=== PATIENT | male | born 1960 | race Caucasian/White ===

== ENCOUNTER 2017-12-07 08:25 | Day surgery (SDC) | payer OTHER ==
[~2017-12-07] VITALS: Ht 177.8 cm; Wt 100.0 kg
[2017-12-07] MEDS ORDERED: 0.9% SODIUM CHLORIDE 10 ML SYRINGE IVP PRN (08:30)
[2017-12-07] MEDS ORDERED: METOPROLOL TARTRATE 50 MG TABLET PO PRN (08:30)
[2017-12-07] MEDS ORDERED: METOPROLOL TARTRATE 50 MG TABLET ONE (08:56)
[2017-12-07 09:07] LABS: ANION GAP 5 mmol/L (8-16); CARBON DIOXIDE 31 mmol/L (22-29); CHLORIDE 104 mmol/L (98-107); CREATININE 0.89 mg/dL (0.60-1.30); GLOMERULAR FILTR. RATE CALC > 60 mL/min (>60); GLUCOSE,RANDOM 217 mg/dL (70-110); POTASSIUM 4.2 mmol/L (3.5-5.1); SODIUM SERUM 140 mmol/L (136-145); UREA NITROGEN, BLOOD 14 mg/dL (7-18)
[2017-12-07] MEDS ORDERED: METF500T6 PO (09:13)
[2017-12-07] MEDS ORDERED: SITA100 PO (09:13)
[2017-12-07] MEDS ORDERED: GLIP10 PO (09:13)
[2017-12-07] MEDS ORDERED: METO-558 PO (09:13)
[2017-12-07] MEDS ORDERED: ATOR20TA86 PO (09:13)
[2017-12-07] MEDS ORDERED: GABA-531 PO (09:13)
[2017-12-07] MEDS ORDERED: IOVERSOL 350 MG/ML 150 ML VIAL ONE ×2 (09:41→10:22)
[2017-12-07] MEDS ORDERED: SODIUM CHLORIDE 0.9% 100 ML ONE ×2 (09:41→10:22)
[2017-12-07] MEDS ORDERED: METOPROLOL TARTRATE 5 MG/5 ML VIAL ONE (10:11)
[2017-12-07] MEDS ORDERED: NITROGLYCERIN 400 MCG/SUBLINGUAL SPRAY 4.9 GM BOTTLE SL ONE ×2 (10:11→10:42)
[2017-12-07] MEDS ORDERED: METOPROLOL TARTRATE 5 MG/5 ML VIAL IVP ONE (10:37)
== END 2017-12-07 11:15 | disposition home or self-care (01) ==
LOC: SURGERY 08:25 → EDSTATUS 10:30 → SURGERY 11:15
PROVIDERS: ATTEND Internal Medicine Cardiovascular Disease
DX: I25.118 Atherosclerotic heart disease of native coronary artery with other forms of angina pectoris (principal); M47.814 Spondylosis without myelopathy or radiculopathy, thoracic region; I08.3 Combined rheumatic disorders of mitral, aortic and tricuspid valves; E11.9 Type 2 diabetes mellitus without complications; E78.5 Hyperlipidemia, unspecified; K21.9 Gastro-esophageal reflux disease without esophagitis; F12.90 Cannabis use, unspecified, uncomplicated; I11.9 Hypertensive heart disease without heart failure; F17.210 Nicotine dependence, cigarettes, uncomplicated; Z72.89 Other problems related to lifestyle; Z90.49 Acquired absence of other specified parts of digestive tract; Z79.891 Long term (current) use of opiate analgesic; Z79.82 Long term (current) use of aspirin; Z79.84 Long term (current) use of oral hypoglycemic drugs; Z79.899 Other long term (current) drug therapy
CPT/HCPCS: 36415; 75574; 80048; 93005; J3490; J7050; Q9967